=== PATIENT | female | born 2000 | race Hispanic/Latino ===

== ENCOUNTER 2018-05-03 20:17 | Emergency (ER) | payer MEDICAID | END 2018-05-03 20:54 | disposition home or self-care (01) | LOC: EDH 20:17 | DX: R53.1 Weakness (principal); R53.83 Other fatigue | CPT/HCPCS: 99281 ==

== ENCOUNTER 2018-07-21 14:31 | Emergency (ER) | payer MEDICAID ==
[2018-07-21] MEDS ORDERED: ACETAMINOPHEN 325 MG TAB ONE (15:13)
[2018-07-21] MEDS ORDERED: ONDANSETRON ODT 4 MG TAB ONE (15:13)
[2018-07-21 15:29] LABS: APPEARANCE,URINE Cloudy (CLEAR); BILIRUBIN,URINE Negative (NEGATIVE); COLOR,URINE Yellow (YELLOW); GLUCOSE, URINE (UA) Negative (NEGATIVE); KETONES,URINE Trace mg/dL (NEGATIVE); LEUKOCYTE ESTERASE ,URINE Small (NEGATIVE); NITRATE,URINE Negative (NEGATIVE); OCCULT BLOOD,URINE Negative (NEGATIVE); PROTEIN,URINE Negative (NEGATIVE)
[2018-07-21 15:31] LABS: HCG,QUAL RESULT POSITIVE (NEGATIVE)
[2018-07-21 15:41] LABS: BACTERIA,URINE Few /HPF (None Seen); MUCUS,URINE Moderate LPF (None Seen); RBC,URINE 0-1 /HPF (0-1); SQUAMOUS EPITHELIAL CELL,UR Moderate /HPF (0-2)
[2018-07-21 15:42] LABS: CREATININE 0.7 mg/dL (0.5-1.5); POTASSIUM 3.5 mmol/L (3.5-5.1)
[2018-07-21 15:47] LABS: ALBUMIN 3.8 g/dL (3.5-5.0); BILIRUBIN,TOTAL 0.6 mg/dL (0.2-1.0); TOTAL PROTEIN, SERUM 8.2 g/dL (6.0-8.3)
== END 2018-07-21 16:30 | disposition home or self-care (01) ==
LOC: EDH 14:31
DX: N30.00 Acute cystitis without hematuria (principal); Z32.01 Encounter for pregnancy test, result positive
CPT/HCPCS: 36415; 80053; 81001; 81025

== ENCOUNTER 2018-07-25 04:12 | Emergency (ER) | payer MEDICAID ==
[2018-07-25 04:56] LABS: APPEARANCE,URINE Cloudy (CLEAR); BILIRUBIN,URINE Negative (NEGATIVE); COLOR,URINE Yellow (YELLOW); GLUCOSE, URINE (UA) Negative (NEGATIVE); KETONES,URINE Negative (NEGATIVE); LEUKOCYTE ESTERASE ,URINE Small (NEGATIVE); NITRATE,URINE Negative (NEGATIVE); OCCULT BLOOD,URINE Negative (NEGATIVE); PROTEIN,URINE Negative (NEGATIVE)
[2018-07-25 05:01] LABS: BASOPHILS % (AUTO) 0.6 % (0.0-5.0); EOSINOPHILS % (AUTO) 0.9 % (0.0-8.0); LYMPHOCYTES % (AUTO) 29.5 % (21.0-51.0); MEAN CORPUSCULAR HGB CONC 30.8 g/dL (32.0-36.0); MEAN CORPUSCULAR VOLUME 71.2 fL (80-100); MONOCYTES % (AUTO) 8.5 % (3.0-13.0); NEUTROPHILS % (AUTO) 60.5 % (40.0-77.0); PLATELET COUNT (AUTO) 281 K/uL (130-400); RED BLOOD CELL COUNT(AUTO) 4.08 MIL/uL (4.00-5.50); RED CELL DISTRIBUTION WIDTH 18.1 % (11.0-15.5); WHITE BLOOD COUNT (AUTO) 7.1 K/uL (4.8-10.8)
[2018-07-25] MEDS ORDERED: ACETAMINOPHEN 325 MG TAB ONE (05:07)
[2018-07-25 05:19] LABS: AMORPHOUS SEDIMENT,UR Few /LPF (None Seen); BACTERIA,URINE Few /HPF (None Seen); RBC,URINE 0-1 /HPF (0-1); SQUAMOUS EPITHELIAL CELL,UR 0-2 /HPF (0-2); WBC,URINE 0-1 /HPF (0-1)
== END 2018-07-25 08:11 | disposition home or self-care (01) ==
LOC: EDH 04:12
DX: O34.81 Maternal care for other abnormalities of pelvic organs, first trimester (principal); O23.591 Infection of other part of genital tract in pregnancy, first trimester; Z3A.01 Less than 8 weeks gestation of pregnancy
CPT/HCPCS: 36415; 76817; 81001; 84702; 85025; 87210; 87486; 87797

== ENCOUNTER 2019-01-11 01:48 | Observation (INO) | payer MEDICAID ==
[~2019-01-11] VITALS: Ht 160 cm; Wt 68.0 kg
== END 2019-01-11 03:23 | disposition home or self-care (01) ==
LOC: EDH 01:48 → LDH 02:09
PROVIDERS: ADMIT Obstetrics & Gynecology; ATTEND Obstetrics & Gynecology
DX: O26.853 Spotting complicating pregnancy, third trimester (principal); N93.0 Postcoital and contact bleeding; Z3A.28 28 weeks gestation of pregnancy
CPT/HCPCS: 99284; G0378

== ENCOUNTER 2019-02-19 17:13 | Observation (INO) | payer MEDICAID ==
[~2019-02-19] VITALS: Ht 160 cm; Wt 71.2 kg
[2019-02-19] MEDS: LACTATED RINGERS 1000ML IV SCH ×2 (18:25→19:00)
[2019-02-19 18:58] LABS: APPEARANCE,URINE Cloudy (CLEAR); BILIRUBIN,URINE Negative (NEGATIVE); COLOR,URINE Yellow (YELLOW); GLUCOSE, URINE (UA) Negative (NEGATIVE); KETONES,URINE Negative (NEGATIVE); LEUKOCYTE ESTERASE ,URINE Large (NEGATIVE); NITRATE,URINE Negative (NEGATIVE); OCCULT BLOOD,URINE Negative (NEGATIVE); PH,URINE 6.5 (5.0-8.0); PROTEIN,URINE Trace mg/dL (NEGATIVE)
[2019-02-19 19:16] LABS: BACTERIA,URINE Many /HPF (None Seen); RBC,URINE None Seen /HPF (0-1)
[2019-02-19 19:41] LABS: AMPHET/METH SCREEN,URINE NEGATIVE (NEGATIVE); BARBITURATE SCREEN, URINE NEGATIVE (NEGATIVE); BENZODIAZEPINES SCREEN,URINE NEGATIVE (NEGATIVE); CANNABINOID SCREEN,URINE NEGATIVE (NEGATIVE); COCAINE SCREEN,URINE NEGATIVE (NEGATIVE); OPIATE SCREEN,URINE NEGATIVE (NEGATIVE); PHENCYCLIDINE SCREEN,URINE NEGATIVE (NEGATIVE)
== END 2019-02-19 21:02 | disposition home or self-care (01) ==
LOC: EDH 17:13 → LDH 17:50
PROVIDERS: ADMIT Obstetrics & Gynecology; ATTEND Obstetrics & Gynecology
DX: O26.893 Other specified pregnancy related conditions, third trimester (principal); R10.9 Unspecified abdominal pain; Z3A.34 34 weeks gestation of pregnancy
CPT/HCPCS: 80305; 81001; 99284; G0378 ×3; 96360; 96361

== ENCOUNTER 2020-10-26 15:42 | Emergency (ER) | payer MEDICAID, OTHER ==
[~2020-10-26 15:42] MED LIST: FERR-82 PO; PREN-196 PO
[2020-10-26 16:27] LABS: APPEARANCE,URINE CLOUDY (CLEAR); BILIRUBIN,URINE SMALL (NEGATIVE); COLOR,URINE YELLOW (YELLOW); GLUCOSE, URINE (UA) NEGATIVE (NEGATIVE); KETONES,URINE NEGATIVE (NEGATIVE); LEUKOCYTE ESTERASE ,URINE SMALL (NEGATIVE); NITRATE,URINE NEGATIVE (NEGATIVE); OCCULT BLOOD,URINE LARGE (NEGATIVE); PROTEIN,URINE 100 mg/dL (NEGATIVE); UROBILINOGEN,URINE 0.2 mg/dL (0.2-1.0)
[2020-10-26 16:32] LABS: HCG,QUAL RESULT NEGATIVE (NEGATIVE)
[2020-10-26 16:37] LABS: BACTERIA,URINE Rare /HPF (None Seen); RBC,URINE 51-100 /HPF (0-1); SQUAMOUS EPITHELIAL CELL,UR Rare /HPF (0-2)
[2020-10-26] MEDS ORDERED: CEFTRIAXONE SODIUM 1 GM ONE (17:01)
[2020-10-26] MEDS ORDERED: KETOROLAC TROMETHAMINE 30MG/ML ONE (17:01)
== END 2020-10-26 18:46 | disposition home or self-care (01) ==
LOC: EDH 15:42
DX: N10 Acute pyelonephritis (principal); R31.0 Gross hematuria
CPT/HCPCS: 74176; 81001; 81025; 87088; 96365; 96366; 96375; 99284; J0696; J1885

== ENCOUNTER 2021-08-23 16:36 | Emergency (ER) | payer OTHER ==
[~2021-08-23] VITALS: Ht 160 cm; Wt 70.3 kg
[2021-08-23 17:28] LABS: BASOPHILS % (AUTO) 0.5 % (0.0-5.0); EOSINOPHILS % (AUTO) 0.5 % (0.0-8.0); HEMATOCRIT 38.3 % (36-48); LYMPHOCYTES % (AUTO) 27.3 % (21.0-51.0); MEAN CORPUSCULAR HEMOGLOBIN 27.4 pg (27.0-33.0); MEAN CORPUSCULAR HGB CONC 32.4 g/dL (32.0-36.0); MEAN CORPUSCULAR VOLUME 84.5 fL (79-99); MONOCYTES % (AUTO) 8.9 % (3.0-13.0); NEUTROPHILS % (AUTO) 62.5 % (40.0-77.0); PLATELET COUNT (AUTO) 292 K/uL (130-400); RED BLOOD CELL COUNT(AUTO) 4.53 MIL/uL (4.00-5.50); RED CELL DISTRIBUTION WIDTH 13.2 % (11.0-15.5); WHITE BLOOD COUNT (AUTO) 9.5 K/uL (4.8-10.8)
[2021-08-23 17:32] LABS: HCG,QUAL RESULT NEGATIVE (NEGATIVE)
[2021-08-23 17:37] LABS: AMPHET/METH SCREEN,URINE NEGATIVE (NEGATIVE); BARBITURATE SCREEN, URINE NEGATIVE (NEGATIVE); BENZODIAZEPINES SCREEN,URINE NEGATIVE (NEGATIVE); CANNABINOID SCREEN,URINE NEGATIVE (NEGATIVE); COCAINE SCREEN,URINE NEGATIVE (NEGATIVE); OPIATE SCREEN,URINE NEGATIVE (NEGATIVE); PHENCYCLIDINE SCREEN,URINE NEGATIVE (NEGATIVE)
[2021-08-23 17:38] LABS: CREATININE 0.8 mg/dL (0.5-1.5); POTASSIUM 3.5 mmol/L (3.5-5.1)
[2021-08-23 17:53] LABS: ALBUMIN 3.9 g/dL (3.5-5.0); BILIRUBIN,TOTAL 0.4 mg/dL (0.2-1.0); TOTAL PROTEIN, SERUM 8.2 g/dL (6.0-8.3)
[2021-08-23 18:28] LABS: APPEARANCE,URINE Turbid (CLEAR); BILIRUBIN,URINE Negative (NEGATIVE); COLOR,URINE Yellow (YELLOW); GLUCOSE, URINE (UA) Negative (NEGATIVE); KETONES,URINE Negative (NEGATIVE); LEUKOCYTE ESTERASE ,URINE Trace (NEGATIVE); NITRATE,URINE Negative (NEGATIVE); OCCULT BLOOD,URINE Moderate (NEGATIVE); PH,URINE 7.5 (5.0-8.0); PROTEIN,URINE Negative (NEGATIVE)
[2021-08-23 18:54] LABS: AMORPHOUS SEDIMENT,UR Many /LPF (None Seen); BACTERIA,URINE Few /HPF (None Seen); SQUAMOUS EPITHELIAL CELL,UR Few /HPF (0-2)
[2021-08-23] MEDS ORDERED: KETOROLAC 30MG VIAL (30MG/ML) IV ONE (19:30)
[2021-08-23 20:18] VITALS: BP 124/78
== END 2021-08-23 21:01 | disposition home or self-care (01) ==
LOC: EDH 16:36
DX: R07.89 Other chest pain (principal); R10.9 Unspecified abdominal pain; M79.605 Pain in left leg
CPT/HCPCS: 36415; 80053; 80305; 81001; 81025; 83690; 84484; 84702; 85025; 96374; 99283; J1885